=== PATIENT | male | born 1995 | race African-American/Black ===

== ENCOUNTER 2016-12-21 15:16 | Emergency (ER) | payer SELFPAY ==
[~2016-12-21] VITALS: Ht 190.5 cm; Wt 77.1 kg
[~2016-12-21 15:16] MED LIST: HYDR-3812 PO; TRM50T PO
--- NOTE | 2016-12-21 15:38 | Diagnostic Imaging Report ---
INDICATION: Recent shoulder dislocation on the left. Pain. EXAMINATION: Three views of the left shoulder were obtained. FINDINGS: No fracture, dislocation or other abnormality. IMPRESSION: Normal left shoulder. Dictated by: Dictated on workstation # [id number]
[2016-12-21] MEDS ORDERED: HYDR-757 PO (15:40)
[2016-12-21] MEDS ORDERED: NAPR500T3 PO (15:40)
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
[2016-12-21 16:05] VITALS: BP 117/64
--- OUTSIDE RECORDS SUMMARY | 2016-12-23 17:13 | XMS REPORT ---
Author Author FRANK ZHANG Organization [employer] Address Unknown Phone Unavailable Care Team Providers Care Certified Nurse Name Role Phone FRANK ZHANG CP Unavailable Allergies No Known Allergies Problems Problem Type Condition ICD-9 Code Onset Dates Condition Status Problem Other general medical examination for administrative purposes V70.3 Active Problem MENINGOCOCCAL DX V03.89 Active Medications No Known Medications Results No Known Results Summary Purpose [employer] Submission
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
--- OUTSIDE RECORDS SUMMARY | 2016-12-23 17:13 | XMS REPORT ---
Author Author FLOR MORALES Organization [employer] Address Unknown Phone Unavailable Care Team Providers Care Donor Specialist Name Role Phone FLOR MORALES CP Unavailable Allergies, Adverse Reactions, Alerts Substance Reaction Event Type N.K.D.A. Info Not Available Non Drug Allergy Problems Problem Type Condition ICD-9 Code Onset Dates Condition Status Problem Other general medical examination for administrative purposes V70.3 Active Assessment Dysuria 788.1 Active Problem MENINGOCOCCAL DX V03.89 Active Assessment Screen for STD (sexually transmitted disease) V74.5 Active Medications No Known Medications Procedures Procedure Coding System Code Date CHYLMD TRACH, DNA, AMP PROBE CPT-4 55453 Feb 21, 2015 N.GONORRHOEAE, DNA, AMP PROB CPT-4 83306 Feb 21, 2015 URINALYSIS, AUTO W/SCOPE CPT-4 75287 Feb 21, 2015 BLOOD SEROLOGY, QUALITATIVE CPT-4 00398 Feb 21, 2015 HIV-1/HIV-2, SINGLE ASSAY CPT-4 06150 Feb 21, 2015 VENIPUNCT, ROUTINE* CPT-4 90753 Feb 21, 2015 Office Visit, Est Pt., Level 3 CPT-4 73510 Feb 21, 2015 Vital Signs Date/Time: Feb 21, 2015 Temperature 97.8 F Weight 186.5 lbs Height 72 in BMI 25.29 Index Blood Pressure Diastolic 64 mmHg Blood Pressure Systolic 110 mmHg Cardiac Monitoring Heart Rate 70 bpm BMIPercentile 73.95 % Wt Percentile 84.91 % Results Name Result Date Reference Range Unit Abnormality Flag ROUTINE VENIPUNCTURE Summary Purpose [employer] Submission
--- OUTSIDE RECORDS SUMMARY | 2016-12-23 17:13 | XMS REPORT | Continuity of Care Document ---
Author Author [facility] Organization [facility] Address Unknown Phone Unavailable Care Team Providers Care Eyeglass Cutter Name Role Phone DAT LINDA DO PP Insurance Providers Payer Name Policy Number Subscriber Name Relationship Malia [employer] [id number] Jose M Boyer 01 Self / Same As Patient Advance Directives Directive Response Recorded Date Advance Directives N 10/27/12 4:02pm Health Care Power of Conical Mixer N 10/27/12 4:02pm Organ Donor N 10/27/12 4:02pm Problems No Known Problems or Medical conditions. Family History History Response Recorded Date/Time Hx Family Cancer Y liver cancer paternal grandfather 01/03/10 6:42pm Social History History Response Recorded Date/Time Alcohol Use Rarely Uses 10/27/12 4:02pm Recreational Drug Use N 10/27/12 4:02pm Allergies, Adverse Reactions, Alerts Allergen Type Severity Reaction Last Updated No Known Drug Allergies 01/03/10 Medications Medication Dose Units Route Sig Qty Days Tramadol HCl (Ultram) 50 Mg PO Q4H 14 Response Recorded Date/Time Status not known Unknown Results Test Date Result Interp. Ref. Range Urine Bacteria March 10, 2012 11:30am NEGATIVE - Urine Bilirubin March 10, 2012 11:30am NEGATIVE - Urine Casts March 10, 2012 11:30am NONE - Urine Clarity March 10, 2012 11:30am CLEAR - Urine Color March 10, 2012 11:30am YELLOW - Urine Crystals March 10, 2012 11:30am NONE - Urine Culture Indicated March 10, 2012 11:30am NO - Urine Glucose (UA) March 10, 2012 11:30am NEGATIVE - Urine Ketones March 10, 2012 11:30am NEGATIVE - Urine Leukocyte Esterase March 10, 2012 11:30am NEGATIVE - Urine Mucus March 10, 2012 11:30am NEGATIVE - Urine Nitrite March 10, 2012 11:30am NEGATIVE - Urine Protein March 10, 2012 11:30am NEGATIVE - Urine RBC March 10, 2012 11:30am NONE /HPF - Urine Specific [place] March 10, 2012 11:30am 1.020 - Urine Squamous Epithelial Cells March 10, 2012 11:30am 0-2 - Urine Urobilinogen March 10, 2012 11:30am NORMAL MG/DL - Urine WBC March 10, 2012 11:30am RARE /HPF - Urine pH March 10, 2012 11:30am 5.0 - Urine RBC (Auto) March 10, 2012 11:30am NEGATIVE - Procedures Procedure Code Date CL FX REDUC-TIBIA/FIBULA 79.06 01/04/10 MRSA Screen 01/03/10 Encounters Encounter Location Date/Time Departed Emergency Room [facility] 3:45pm Discharged Inpatient [facility] 4:52pm
== END 2016-12-21 16:05 | disposition home or self-care (01) ==
LOC: ER 15:16
DX: M25.512 Pain in left shoulder (principal); F17.210 Nicotine dependence, cigarettes, uncomplicated
CPT/HCPCS: 73030; 99282

== ENCOUNTER 2017-06-07 15:21 | Emergency (ER) | payer BC, OTHER ==
[~2017-06-07] VITALS: Ht 190.5 cm; Wt 77.3 kg
[~2017-06-07 15:21] MED LIST changes: +HYDR-757 PO; +NAPR500T4 PO
[2017-06-07 15:37] LABS: MEAN PLATELET VOLUME 9.4 FL (7.4-10.4); RED BLOOD COUNT 5.05 10^6/uL (4.35-5.85); RED CELL DISTRIBUTION WIDTH 13.1 % (10.0-14.5); WHITE BLOOD COUNT 16.5 10^3/uL (4.3-11.0)
[2017-06-07 15:42] VITALS: BP 135/65
[2017-06-07 15:56] LABS: ALANINE AMINOTRANSFERASE 13 U/L (0-55); ALBUMIN 4.3 GM/DL (3.2-4.5); ALCOHOL < 10 MG/DL (<10); ANION GAP 13 MMOL/L (5-14); ASPARTATE AMINO TRANSFERASE 20 U/L (5-34); BILIRUBIN,DIRECT 0.1 MG/DL (0.0-0.3); BILIRUBIN,INDIRECT 0.2 MG/DL; BILIRUBIN,TOTAL 0.3 MG/DL (0.1-1.0); BLOOD UREA NITROGEN 14 MG/DL (7-18); BUN/CREATININE RATIO 10; CALCIUM 9.5 MG/DL (8.5-10.1); CARBON DIOXIDE 18 MMOL/L (21-32); CHLORIDE 107 MMOL/L (98-107); CREATININE SERUM 1.43 MG/DL (0.60-1.30); GFR ESTIMATED > 60; GLUCOSE 141 MG/DL (70-105); SODIUM 138 MMOL/L (135-145); TOTAL PROTEIN 7.5 GM/DL (6.4-8.2)
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
[2017-06-07] MEDS ORDERED: fentaNYL INJECTION 100 MCG/2 ML AMP IVP STA (16:18)
[2017-06-07] MEDS ORDERED: TETANUS,DIPTH,PERTUSS P/F (BOOSTRIX) 0.5 ML VIAL IM STA (16:18)
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
== END 2017-06-07 18:26 | disposition home or self-care (01) ==
LOC: EDUNIT# 15:21 → ER 15:22
DX: S09.90XA Unspecified injury of head, initial encounter (principal); S01.81XA Laceration without foreign body of other part of head, initial encounter; S50.811A Abrasion of right forearm, initial encounter; F15.10 Other stimulant abuse, uncomplicated; F12.10 Cannabis abuse, uncomplicated; Z23 Encounter for immunization; Z77.22 Contact with and (suspected) exposure to environmental tobacco smoke (acute) (chronic); Y04.8XXA Assault by other bodily force, initial encounter
CPT/HCPCS: 36415; 70450; 70486; 71010; 72125; 80048; 80076; 80306; 80320; 85027; 90715; 93041

== ENCOUNTER 2017-12-18 11:52 | Emergency (ER) | payer BC ==
[~2017-12-18] VITALS: Ht 190.5 cm; Wt 90.9 kg
[~2017-12-18 11:52] MED LIST changes: +ACHD5005 PO; -HYDR-3812 PO; +NAPR-915 PO; -NAPR500T4 PO
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
[2017-12-18] MEDS ORDERED: NS 250 ML (IVPB) BAG IV ONE (12:30)
[2017-12-18] MEDS ORDERED: CATHETER FLUSH 10 ML SYR IV PRN (12:30)
[2017-12-18] MEDS ORDERED: IOHEXOL 350 MG/ML 100 ML (OMNIPAQUE 350) VIAL IV ONE (12:30)
--- NOTE | 2017-12-18 12:34 | ED Abdominal Pain ---
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 LOOSE STOOLS FOR A COUPLE DAYS. Sepsis Screen: No Definite Risk (SUJATHA RUIZ) History of Present Illness Date Seen by Provider: Dec 18, 2017 Time Seen by Provider: 12:31 Initial Comments Patient is a 22-year-old -[place] male who presents to emergency room with sharp right-sided abdominal pain that started 1 hour prior to arrival. He does report diarrhea for the past 2 days, during our exam the patient had to leave to have a bowel movement and he reports that after his bowel movement he is pain-free. Timing/Duration: 1 Hour Severity/Quality: Cramping, Sharp Radiation: RUQ, RLQ Modifying Factors: Improves With Defecating Associated Symptoms: No Diaphoresis, No Fever/Chills, No Nausea/Vomiting; Other (diarrhea) (SUJATHA RUIZ) Allergies and Home Medications Allergies Coded Allergies: No Known Drug Allergies (Unverified , 01/03/10) Home Medications No Active Prescriptions or Reported Meds Patient Home Medication List Home Medication List Reviewed: Yes (SUJATHA RUIZ) Review of Systems Constitutional: see HPI; No chills, No fever EENTM: No Symptoms Reported Respiratory: No Symptoms Reported Cardiovascular: No Symptoms Reported Gastrointestinal: See HPI, Abdominal Pain, Diarrhea; Denies Nausea, Denies Vomiting Genitourinary: See HPI; Denies Discharge, Denies Frequency, Denies Flank Pain, Denies Hematuria Musculoskeletal: see HPI; No back pain, No gout Skin: see HPI; No change in color Psychiatric/Neurological: See HPI; Denies Anxiety, Denies Depressed Endocrine: See HPI; Denies Excessive Sweating Hematologic/Lymphatic: See HPI; Denies Anemia (SUJATHA RUIZ) All Other Systems Reviewed Negative Unless Noted: Yes (SUJATHA RUIZ) Past Xvkpxmu-Cznnev-Rcuntt Hx Past Med/Social Hx: Reviewed Nursing Past Med/Soc Hx (SUJATHA RUIZ) Patient Social History Drug of Choice: marijuana every day Type Used: Cigarettes 2nd Hand Smoke Exposure: Yes Recent Foreign Travel: No Contact w/Someone Who Travel: No Recent Infectious Disease Expo: No Recent Hopitalizations: No (SUJATHA RUIZ) Immunizations Up To Date Tetanus Booster (TDap): Unknown PED Vaccines UTD: Yes (SARASUJATHA STUDENT) Past Medical History Surgeries: Yes Orthopedic Respiratory: No Cardiac: No Neurological: No Reproductive Disorders: No Genitourinary: No Gastrointestinal: No Musculoskeletal: No Endocrine: No HEENT: No Cancer: No Psychosocial: No Integumentary: No Blood Disorders: No (SUJATHA RUIZ STUDENT) Family Medical History Reviewed Nursing Family Hx (SUJATHA RUIZ STUDENT) No Pertinent Family Hx (SUJATHA RUIZ STUDENT) Physical Exam Vital Signs Vital Signs - First Documented 12/18/17 12:02 Temp 97.1 Pulse 102 Resp 20 B/P (MAP) 139/85 (103) Pulse Ox 98 O2 Delivery Room Air (RONDA LOUISE MD) Vital Signs Capillary Refill : Less Than 3 Seconds (SUJATHA RUIZ STUDENT) General Appearance: WD/WN, no apparent distress HEENT: normal ENT inspection, TMs normal, pharynx normal Neck: non-tender, full range of motion, supple Respiratory: chest non-tender, lungs clear, normal breath sounds Cardiovascular: regular rate, rhythm, no edema, no murmur Gastrointestinal: normal bowel sounds, soft, no organomegaly, no pulsatile mass , tenderness (patient is tender on palpation to right upper quadrant and right lower quadrant.) Extremities: normal range of motion, non-tender, normal inspection Back: normal inspection, no CVA tenderness Neurologic/Psychiatric: alert, normal mood/affect, oriented x 3 Skin: normal color, warm/dry Lymphatic: no adenopathy (SUJATHA RUIZ STUDENT) Progress/Results/Core Measures Results/Orders Lab Results Laboratory Tests Test 12/18/17 12:30 Range/Units White Blood Count 11.5 H 4.3-11.0 10^3/uL Red Blood Count 4.86 4.35-5.85 10^6/uL Hemoglobin 15.0 13.3-17.7 G/DL Hematocrit 43 40-54 % Mean Corpuscular Volume 89 80-99 FL Mean Corpuscular Hemoglobin 31 25-34 PG Mean Corpuscular Hemoglobin Concent 35 32-36 G/DL Red Cell Distribution Width 13.9 10.0-14.5 % Platelet Count 291 130-400 10^3/uL Mean Platelet Volume 9.1 7.4-10.4 FL Neutrophils (%) (Auto) 74 42-75 % Lymphocytes (%) (Auto) 14 12-44 % Monocytes (%) (Auto) 11 0-12 % Eosinophils (%) (Auto) 1 0-10 % Basophils (%) (Auto) 0 0-10 % Neutrophils # (Auto) 8.4 H 1.8-7.8 X 10^3 Lymphocytes # (Auto) 1.6 1.0-4.0 X 10^3 Monocytes # (Auto) 1.3 H 0.0-1.0 X 10^3 Eosinophils # (Auto) 0.1 0.0-0.3 10^3/uL Basophils # (Auto) 0.0 0.0-0.1 10^3/uL Sodium Level 138 135-145 MMOL/L Potassium Level 4.1 3.6-5.0 MMOL/L Chloride Level 106 98-107 MMOL/L Carbon Dioxide Level 24 21-32 MMOL/L Anion Gap 8 5-14 MMOL/L Blood Urea Nitrogen 8 7-18 MG/DL Creatinine 0.96 0.60-1.30 MG/DL Estimat Glomerular Filtration Rate > 60 BUN/Creatinine Ratio 8 Glucose Level 86 70-105 MG/DL Calcium Level 8.9 8.5-10.1 MG/DL Total Bilirubin 0.4 0.1-1.0 MG/DL Aspartate Amino Transf (AST/SGOT) 21 5-34 U/L Alanine Aminotransferase (ALT/SGPT) 18 0-55 U/L Alkaline Phosphatase 58 40-136 U/L Total Protein 6.8 6.4-8.2 GM/DL Albumin 4.1 3.2-4.5 GM/DL Amylase Level 79 25-125 U/L Lipase 47 8-78 U/L (RONDA LOUISE MD) Vital Signs/I&O 12/18/17 12:02 Temp 97.1 Pulse 102 Resp 20 B/P (MAP) 139/85 (103) Pulse Ox 98 O2 Delivery Room Air (RONDA LOUISE MD) Blood Pressure Mean: 103 Departure Communication (Admissions) 1329 the case with Mr. Ruiz. Laboratory is unremarkable. There is a minimal elevation of white blood count. The patient related to wa that he had suffered loose stools for 2 days. He has had 2 stools today and 7 or 8 total over this time. He reported that he had a rather intense crampy pain in the right lateral abdomen. This caused him to come out here. When he had his large watery stool with passage of gas these painless relieved and remains so. He is now nontender to palpation. Bowel sounds are hypoactive at this time. He reports that he has had episodes of gurgling which would be suggestive of borborygmus. Impression is likely viral gastroenteritis. He was instructed on diet with starting point at Gatorade and 7-Up for at least 12 hours. He is then able to advance first with broth soup and soda crackers and slowly adding elements. He is advised to avoid greasy or spicy food for 4-5 days. (RONDA LOUISE MD) Impression Primary Impression: Diarrhea Qualified Codes: R19.7 - Diarrhea, unspecified Disposition: 07 AGAINST MEDICAL ADVICE Condition: Stable/Unchanged Departure-Patient Inst. Decision time for Depature: 13:46 (SUJATHA RUIZ STUDENT) Referrals: DAT LINDA DO (PCP/Family) Primary Care Physician Patient Instructions: Diarrhea in Adolescents and Adults Add. Discharge Instructions: 1. Start on diet with Gatorade and 7-Up for at least 12 hours. 2. Advance diet as tolerated with broth, soda crackers, and slowly advanced a normal diet. 3. Avoid greasy, spicy, fatty foods for at least 4-5 days. 4. Return back to the emergency room for increased pain, nausea, vomiting, or any other concerns as needed. 5. Follow-up with her doctor within 1 week for recheck. 6. All discharge instructions reviewed with patient and/or family. Voiced understanding. Scripts No Active Prescriptions or Reported Meds SUJATHA RUIZ Dec 18, 2017 12:34 RONDA LOUISE MD Dec 18, 2017 13:30
[2017-12-18 12:45] LABS: BASOPHILS % (AUTO) 0 % (0-10); EOSINOPHILS # (AUTO) 0.1 10^3/uL (0.0-0.3); EOSINOPHILS % (AUTO) 1 % (0-10); HEMATOCRIT 43 % (40-54); LYMPHOCYTES # (AUTO) 1.6 X 10^3 (1.0-4.0); LYMPHOCYTES % (AUTO) 14 % (12-44); MEAN CORPUSCULAR HEMOGLOBIN 31 PG (25-34); MEAN CORPUSCULAR HGB CONC 35 G/DL (32-36); MEAN CORPUSCULAR VOLUME 89 FL (80-99); MEAN PLATELET VOLUME 9.1 FL (7.4-10.4); MONOCYTES # (AUTO) 1.3 X 10^3 (0.0-1.0); MONOCYTES % (AUTO) 11 % (0-12); NEUTROPHILS # (AUTO) 8.4 X 10^3 (1.8-7.8); NEUTROPHILS % (AUTO) 74 % (42-75); PLATELET COUNT 291 10^3/uL (130-400); RED BLOOD COUNT 4.86 10^6/uL (4.35-5.85); RED CELL DISTRIBUTION WIDTH 13.9 % (10.0-14.5); WHITE BLOOD COUNT 11.5 10^3/uL (4.3-11.0)
[2017-12-18 13:04] LABS: CARBON DIOXIDE 24 MMOL/L (21-32); CHLORIDE 106 MMOL/L (98-107); CREATININE SERUM 0.96 MG/DL (0.60-1.30); POTASSIUM 4.1 MMOL/L (3.6-5.0); SODIUM 138 MMOL/L (135-145)
[2017-12-18 13:05] LABS: ALANINE AMINOTRANSFERASE 18 U/L (0-55); ALBUMIN 4.1 GM/DL (3.2-4.5); ALKALINE PHOSPHATASE 58 U/L (40-136); AMYLASE 79 U/L (25-125); BILIRUBIN,TOTAL 0.4 MG/DL (0.1-1.0); BUN/CREATININE RATIO 8; CALCIUM 8.9 MG/DL (8.5-10.1); GFR ESTIMATED > 60; GLUCOSE 86 MG/DL (70-105); LIPASE 47 U/L (8-78); TOTAL PROTEIN 6.8 GM/DL (6.4-8.2)
[2017-12-18 13:53] VITALS: BP 118/76
== END 2017-12-18 13:52 | disposition home or self-care (01) ==
LOC: EDUNIT# 11:52 → ER 11:54
DX: R19.7 Diarrhea, unspecified (principal); F12.10 Cannabis abuse, uncomplicated; Z77.22 Contact with and (suspected) exposure to environmental tobacco smoke (acute) (chronic)
CPT/HCPCS: 36415; 80053; 82150; 83690; 85025